=== PATIENT | female | born 1970 | race Caucasian/White ===

== ENCOUNTER 2025-01-01 12:52 | Inpatient (IN) ==
[2025-01-01] MEDS: IPRATROPIUM/ALBUTEROL 3 ML AMPUL.NEB NEB ONE ×2 (13:32→15:02)
[2025-01-01] MEDS: methylPREDNISolone SOD SUCC 125 MG/2 ML VIAL IV ONE (13:37)
[2025-01-01 13:44] LABS: Basophils # (Auto) 0.02 K/mcL (0.00-0.30); Basophils % (Auto) 0.4 % (0.0-2.0); Eosinophils # (Auto) 0.25 K/mcL (0.00-0.70); Eosinophils % (Auto) 4.5 % (0.0-7.0); Hematocrit 40.3 % (34.1-44.9); Hemoglobin 12.6 g/dL (11.2-15.7); Lymphocytes # (Auto) 1.24 K/mcL (1.50-4.80); Lymphocytes % (Auto) 22.1 % (15.5-49.0); Mean Cell Volume 80.1 fL (80.0-100.0); Mean Corpuscular HGB Conc 31.3 g/dL (31.0-36.0); Mean Platelet Volume 9.7 fL (8.8-12.5); Monocytes # (Auto) 0.66 K/mcL (0.10-0.90); Monocytes % (Auto) 11.8 % (1.0-12.0); Neutrophils % (Auto) 61.2 % (38.0-78.0); Platelet Count 293 K/mcL (140-440); RBC 5.03 M/mcL (3.59-5.38); Red Cell Distribution Width 14.5 % (11.5-14.5); WBC 5.6 K/mcL (4.5-11.0)
[2025-01-01 14:08] LABS: ALT/SGPT 13 U/L (<40); AST/SGOT 13 U/L (<32); Albumin 4.1 gm/dL (3.2-5.2); Alkaline Phosphatase 55 U/L (39-117); Bilirubin,Total 0.4 mg/dL (0.1-1.0); Blood Urea Nitrogen 11 mg/dL (6-20); Carbon Dioxide 31 mmol/L (22-30); Chloride 102 mmol/L (96-108); Globulin 2.1 gm/dL (2.2-3.7); Glomerular Filtration Rate 97; Glucose 106 mg/dL (70-105); Potassium 4.6 mmol/L (3.3-5.1); Sodium 140 mmol/L (133-145)
[2025-01-01] MEDS: AZITHROMYCIN 500 MG in 0.9 % SODIUM CHLORIDE 250 ML IV ONE (14:36)
[2025-01-01] MEDS: KETOROLAC 30 MG/ML VIAL IV ONE (14:36)
[2025-01-01] MEDS ORDERED: IPRATROPIUM/ALBUTEROL 3 ML AMPUL.NEB NEB PRN (18:13)
[2025-01-01] MEDS: IPRATROPIUM/ALBUTEROL 3 ML AMPUL.NEB NEB SCH (18:40)
[2025-01-01] MEDS ORDERED: LACTULOSE 20 GM/30 ML ORAL.SOL PO PRN (20:02)
[2025-01-01] MEDS ORDERED: oxyCODONE IR 5 MG TABLET PO PRN (20:02)
[2025-01-01] MEDS ORDERED: SENNOSIDES 1 TABLET PO PRN (20:02)
[2025-01-01] MEDS ORDERED: HYDROmorphone 1 MG/ML SYRINGE IV PRN (20:02)
[2025-01-01] MEDS ORDERED: ONDANSETRON 4 MG/2 ML VIAL IV PRN (20:02)
[2025-01-01] MEDS ORDERED: ACETAMINOPHEN 325 MG TABLET PO PRN (20:02)
[2025-01-01] MEDS: APIXABAN 5 MG TABLET PO SCH (22:02)
[2025-01-01] MEDS: MELATONIN 3 MG TABLET PO SCH (22:02)
[2025-01-01] MEDS: 0.9 % SODIUM CHLORIDE 10 ML SYRINGE IV SCH (22:02)
[2025-01-01] MEDS: traZODone HCL 50 MG TABLET PO PRN (22:02)
[2025-01-01] MEDS: DEXAMETHASONE 10 MG/ML VIAL IV ONE (22:02)
[2025-01-02 05:58] LABS: Basophils # (Auto) 0 K/mcL (0.00-0.30); Basophils % (Auto) 0 % (0.0-2.0); Eosinophils # (Auto) 0 K/mcL (0.00-0.70); Eosinophils % (Auto) 0 % (0.0-7.0); Hematocrit 33.5 % (34.1-44.9); Hemoglobin 10.4 g/dL (11.2-15.7); Lymphocytes # (Auto) 0.43 K/mcL (1.50-4.80); Lymphocytes % (Auto) 10.4 % (15.5-49.0); Mean Cell Volume 79.8 fL (80.0-100.0); Mean Platelet Volume 9.5 fL (8.8-12.5); Monocytes # (Auto) 0.09 K/mcL (0.10-0.90); Monocytes % (Auto) 2.2 % (1.0-12.0); Neutrophils % (Auto) 87.4 % (38.0-78.0); Platelet Count 244 K/mcL (140-440); Red Cell Distribution Width 14.6 % (11.5-14.5); WBC 4.1 K/mcL (4.5-11.0)
[2025-01-02 06:24] LABS: C-Reactive Protein < 0.30 mg/dL (0.03-0.80)
[2025-01-02 06:36] LABS: ALT/SGPT 10 U/L (<40); AST/SGOT 10 U/L (<32); Albumin 3.7 gm/dL (3.2-5.2); Albumin/Globulin Ratio 2.3 (1.0-2.3); Alkaline Phosphatase 44 U/L (39-117); Bilirubin,Total < 0.2 mg/dL (0.1-1.0); Blood Urea Nitrogen 16 mg/dL (6-20); Calcium 8.6 mg/dL (8.6-10.4); Carbon Dioxide 30 mmol/L (22-30); Chloride 101 mmol/L (96-108); Globulin 1.6 gm/dL (2.2-3.7); Glomerular Filtration Rate 102; Glucose 165 mg/dL (70-105); Potassium 4.3 mmol/L (3.3-5.1); Sodium 137 mmol/L (133-145)
[2025-01-02] MEDS: PANTOPRAZOLE 40 MG TABLET PO SCH (07:32)
[2025-01-02] MEDS ORDERED: methylPREDNISolone SOD SUCC 125 MG/2 ML VIAL IV SCH (09:00)
[2025-01-02] MEDS ORDERED: cefTRIAXone 1 GM VIAL IV SCH (09:00)
[2025-01-02] MEDS ORDERED: AZITHROMYCIN 500 MG in DEXTROSE 5% IN WATER 250 ML IV SCH (09:00)
[2025-01-02] MEDS: busPIRone 5 MG TABLET PO SCH (09:10)
[2025-01-02] MEDS: DEXAMETHASONE 10 MG/ML VIAL IV SCH (09:10)
[2025-01-02] MEDS: FLUTICASONE/SALMETEROL 250/50 INHALER #14 INH SCH (09:30)
[2025-01-02 13:54] LABS: Amphetamine Screen,Urine Suspect positive; Barbiturate Screen,Urine None detected; Benzodiazepines Screen,Urine None detected; Cannabinoid Screen,Urine None detected; Cocaine Screen,Urine None detected; Fentanyl, Urine Screen Suspect Positive; Opiate Screen,Urine None detected; Oxycodone, Urine Screen None detected; Phencyclidine Screen,Urine None detected
[2025-01-02 14:06] VITALS: TEMP 97.8
[2025-01-02] MEDS: IBUPROFEN 800 MG TABLET PO ONE (14:47)
[2025-01-02 15:15] VITALS: O2SAT 93
[2025-01-02] MEDS ORDERED: SODIUM CHLORIDE NASAL 1 SPRAY BOTTLE NAS PRN (15:29)
== END 2025-01-02 19:05 | disposition left against medical advice (07) | DRG 177 ==
LOC: ED 12:52 → ICU 20:00
PROVIDERS: ADMIT Student in an Organized Health Care Education/Training Program; ATTEND Student in an Organized Health Care Education/Training Program